=== PATIENT | female | born 1985 | race Caucasian/White ===

== ENCOUNTER 2017-04-14 17:46 | Emergency (ER) | payer MEDICARE | END 2017-04-14 18:46 | disposition home or self-care (01) | LOC: D.ER 17:46 | DX: K08.89 Other specified disorders of teeth and supporting structures (principal); S02.5XXA Fracture of tooth (traumatic), initial encounter for closed fracture; X58.XXXA Exposure to other specified factors, initial encounter; Y93.89 Activity, other specified; Y92.89 Other specified places as the place of occurrence of the external cause ==

== ENCOUNTER 2017-05-02 10:41 | Emergency (ER) | payer MEDICARE | END 2017-05-02 12:46 | disposition home or self-care (01) | LOC: D.ER 10:41 | DX: K02.9 Dental caries, unspecified (principal); K08.89 Other specified disorders of teeth and supporting structures ==

== ENCOUNTER 2017-06-27 11:59 | Emergency (ER) | payer MEDICARE | END 2017-06-27 14:07 | disposition home or self-care (01) | LOC: D.ER 11:59 | DX: J11.1 Influenza due to unidentified influenza virus with other respiratory manifestations (principal); R11.2 Nausea with vomiting, unspecified ==